=== PATIENT | female | born 1995 | race Caucasian/White ===

== ENCOUNTER 2020-10-28 08:08 | Day surgery (SDC) | payer OTHER ==
[~2020-10-28] VITALS: Ht 149.9 cm; Wt 88.0 kg
[~2020-10-28 08:08] MED LIST: LR 1,000 ML IV ONE; METF-838 PO; SYNT25TA PO
[2020-10-28] MEDS ORDERED: propofoL 200 MG/20 ML VIAL As Ordered ONE ×2 (08:24→12:22)
[2020-10-28] MEDS ORDERED: LIDOCAINE 2% 100MG/5ML SDV (FOR ANES.) As Ordered ONE (08:24)
[2020-10-28] MEDS ORDERED: ONDANSETRON 4MG/2ML VIAL As Ordered ONE (08:25)
[2020-10-28] MEDS ORDERED: dexameTHASONE 4 MG/ML 1ML VIAL (J1100 PER 1MG) As Ordered ONE (08:25)
[2020-10-28] MEDS ORDERED: fentaNYL 100 MCG/2 ML INJECTION (J3010) As Ordered ONE ×2 (08:25→11:05)
[2020-10-28] MEDS ORDERED: MIDAZOLAM INJ 2MG/2ML VIAL (J2250 PER 1MG) As Ordered ONE (08:25)
[2020-10-28 08:49] LABS: HEMATOCRIT 43.2 % (36.0-47.0); MEAN CORPUSCULAR HEMOGLOBIN 28.4 pg (27.0-33.0); MEAN CORPUSCULAR HGB CONC 32.4 g/dl (32.0-36.5); MEAN CORPUSCULAR VOLUME 87.6 fl (80.0-96.0); PLATELET COUNT, AUTOMATED 406 10^3/uL (150-450); RED BLOOD COUNT 4.93 10^6/uL (4.00-5.40)
[2020-10-28] MEDS ORDERED: KETOROLAC 60MG 2ML VIAL As Ordered ONE (09:14)
[2020-10-28] MEDS ORDERED: SUGAMMADEX SODIUM 500 MG/5 ML VIAL (BRIDION) As Ordered ONE ×2 (09:14→11:18)
[2020-10-28 09:19] LABS: HCG, SERUM QUALITATIVE NEGATIVE (NEGATIVE)
[2020-10-28] MEDS ORDERED: ACETAMINOPHEN 1000MG 100ML IV BTL (OFIRMEV) (J0131 PER 10MG) As Ordered ONE (10:27)
[2020-10-28] MEDS ORDERED: METOCLOPRAMIDE INJ 10MG/2ML VIAL (J2765 PER 1) As Ordered ONE (10:38)
[2020-10-28] MEDS ORDERED: ROCURONIUM BROMIDE 50 MG/5 ML VIAL As Ordered ONE (10:57)
[2020-10-28] MEDS ORDERED: BUPIVACAINE HCL 0.5% 10ML VIAL As Ordered ONE (11:00)
[2020-10-28] MEDS ORDERED: ceFAZolin 2 GM/D5W 50 ML IV BAG (J0690 PER 500MG) As Ordered ONE (11:36)
[2020-10-28] MEDS ORDERED: oxyCODONE 5MG TAB PO PRN (12:05)
[2020-10-28] MEDS ORDERED: HYDROMORPHONE HCL 0.5 MG/ 0.5 ML SYRINGE (J1170 PER 1) IV PRN (12:05)
[2020-10-28] MEDS ORDERED: ONDANSETRON 4MG/2ML VIAL IV PRN (12:05)
[2020-10-28] MEDS ORDERED: fentaNYL 100 MCG/2 ML INJECTION (J3010) IV PRN (12:05)
[2020-10-28] MEDS ORDERED: LR 1,000 ML IV SCH (12:05)
[2020-10-28] MEDS ORDERED: PERCOCET 5MG/325MG TAB PO PRN (12:25)
[2020-10-28] MEDS ORDERED: KETOROLAC 30 MG/ML 1ML VIAL IV PRN (12:25)
--- NOTE | 2020-10-28 13:25 | RO ---
OPERATIVE NOTE DATE OF OPERATION: 10/28/2020 PREOPERATIVE DIAGNOSIS: Oligomenorrhea, obesity, PCOS and cervical stenosis. POSTOPERATIVE DIAGNOSIS: Oligomenorrhea, obesity, PCOS, cervical stenosis, severe uterine retroversion. PROCEDURES: Diagnostic hysteroscopy, dilatation and curettage, and diagnostic laparoscopy. SURGEON: Jose Juan Merritt DO ANIMAL MAINTENANCE SUPERVISOR: Dr. Isreal Clark MD IV FLUIDS: 1300 mL LR. URINE OUTPUT: 100 mL. EBL: 2 mL. ANTIBIOTICS: 2 gm Ancef. ANESTHESIA: OPERATIVE FINDINGS: Severely retroverted uterus with stenotic internal os. Uterine perforation identified. Upon laparoscopy there was noted to be omental adhesions to the anterior abdominal wall. The uterus was noted to be severely retroverted almost completely folded in half. The bilateral fallopian tubes appeared normal. The right ovary was encased in filmy adhesions. Mildly enlarged left ovary. Uterine perforation was identified at the anterior lower uterine segment. There was severe scarring from the bladder to the anterior part of the uterus and the perforation occurred at the scar between the bladder and the uterus. There was no bladder injury. The bladder was back-filled confirming that it was intact and there was no leakage. DESCRIPTION OF PROCEDURE: The risks, benefits, indications, and alternatives of the procedure were reviewed with the patient and informed consent was obtained. The patient was taken to the operating room where general anesthesia was obtained without difficulty. The patient was then placed in the lithotomy position using Oscar stirrups. An examination under anesthesia was then performed and was significant for a retroverted uterus. The patient was then prepped and draped in usual sterile fashion and the bladder was drained using in-and-out catheter. A sterile speculum was then placed in the patient's vagina and the cervix was visualized. A single toothed tenaculum was used to grasp the anterior lip of the cervix. A uterine sound was gently placed through the cervix. This met resistance at the internal cervical os. Dilation was then attempted to size 15 Indonesian with a Hand dilator. The uterine sound still could not be adequately placed within the uterus secondary to resistance. The hysteroscope was then primed. The hysteroscope was then attempted to be advanced into endocervical canal. This could not be accomplished secondary to significant resistance. At this point Dr. Clark was called into the room for assistance. A hysteroscopy was again attempted and a uterine perforation was identified. The patient was then prepped for laparoscopy to assess the degree of perforation and if there was any injury. A eduardo catheter was placed. The patient was re-prepped and redraped. Rescrubbing was performed. New gloves were put on. Attention was turned to the patient's abdomen where a 5 mm skin incision was made in the inferior aspect of the umbilicus after injection of Marcaine. A 5 mm trocar and sleeve were then carefully introduced into the peritoneal cavity under direct visualization at a 90-degree angle while tenting up the abdominal wall. Intraperitoneal placement was confirmed under direct visualization and entry pressure noted to be less than 5 mmHg. A pneumoperitoneum was obtained with several liters of CO2 gas. Upon entry into the peritoneal cavity, structures immediately below the incision were inspected and found to be free of injury. A survey of the patient's abdomen and pelvis was notable for normal appearing liver. There were omental adhesions to the anterior abdominal wall. The stomach appeared normal. The uterus was massively retroverted, nearly folded in on itself. The fallopian tubes were normal bilaterally. The right ovary was encased in filmy adhesions and was enlarged in appearance. The left ovary was slightly enlarged but appeared normal. There was severe scarring from the bladder to the lower anterior portion of the uterus. The uterine perforation was identified within the scarring at the interface between the bladder and the uterus. There was no bleeding whatsoever from this perforation and it was small. There was no injury to anywhere near the bowel or any vasculature whatsoever. The bladder was then back-filled to confirm that the bladder remained intact. There was no leaking of urine seen during the backfill. This confirmed that the bladder was intact and without injury. Suction irrigation was then performed to remove the hysteroscopic fluid that came into the abdomen through the perforation. Again, inspection of the perforation revealed excellent hemostasis and no need for repair. The gas was then turned off and all CO2 was removed from the patient's abdomen. The patient was given 2 grams of Ancef due to the uterine perforation for infection prophylaxis. Again, no bleeding was seen. All ports were then removed under direct visualization and there was no bleeding seen from the trocar sites. The incisions were closed with 4-0 Monocryl suture and then covered with Dermabond. All instruments were then removed from the patient's vagina. The eduardo catheter was removed. The cervix was noted to be hemostatic. At the completion of the case, the sponge, instrument, and needle counts were correct x2. The patient tolerated the procedure well. She was cleansed and dried, taken out of lithotomy position, awakened from anesthesia, and taken to PACU in stable condition. GUILLERMO
[2020-10-28 14:00] VITALS: BP 113/53
== END 2020-10-28 14:03 | disposition home or self-care (01) ==
LOC: M SDC 08:08
PROVIDERS: ATTEND Obstetrics & Gynecology
DX: N91.5 Oligomenorrhea, unspecified (principal); K66.8 Other specified disorders of peritoneum; N73.6 Female pelvic peritoneal adhesions (postinfective); N85.4 Malposition of uterus; N88.2 Stricture and stenosis of cervix uteri; N99.71 Accidental puncture and laceration of a genitourinary system organ or structure during a genitourinary system procedure; E03.9 Hypothyroidism, unspecified; R73.03 Prediabetes; Z79.899 Other long term (current) drug therapy; Z79.84 Long term (current) use of oral hypoglycemic drugs
CPT/HCPCS: 36415; 58558; 84703; 85027; 88305; J0131; J0690; J1100; J1885; J2250; J2405; J2765; J3010

== ENCOUNTER → 2025-02-12 | Outpatient (CLI) | payer OTHER ==
[~2025-02-12] MED LIST changes: -LR 1,000 ML IV ONE
[2025-02-12 15:55] LABS: PLATELET COUNT, AUTOMATED 336 10^3/uL (150-450)
[2025-02-12 16:51] LABS: HIV 1&2 SCREEN NEGATIVE (NEGATIVE)
[2025-02-12 16:58] LABS: HEPATITIS C VIRUS ABY INDEX 0.06 INDEX (<0.8); Trichomonas vaginalis (AMP) NOT DETECTED (NEGATIVE)
[2025-02-12 17:22] LABS: GC DNA AMPLIFICATION NEGATIVE (NEGATIVE)
== END ==
LOC: M PLALAB 12:01
PROVIDERS: ATTEND Specialist
DX: Z34.81 Encounter for supervision of other normal pregnancy, first trimester (principal)

== ENCOUNTER → 2025-04-12 | Outpatient (CLI) | payer OTHER | LOC: M WHC 10:23 | PROVIDERS: ATTEND Specialist | DX: Z34.82 Encounter for supervision of other normal pregnancy, second trimester (principal) ==